=== PATIENT | female | born 1940 | race Caucasian/White ===

== ENCOUNTER 2018-01-06 15:54 | Emergency (ER) | payer MEDICARE ==
[~2018-01-06 15:54] MED LIST: CART180C PO; CHOL1CAP34 PO; DILT0.05 PO; GABA600T PO; GLIP10TA6 PO; HYDR-3583 PO; LIPI20TA PO; LISI-519 PO; METF500T PO; REGL5TAB PO; SITA1TAB2 PO; TRAD5TAB PO; ZANT150T2 PO
[2018-01-06 16:06] VITALS: BP 148/74; PULSE 120; RESP 20; TEMP 98.9; O2SAT 96
[2018-01-06] MEDS ORDERED: SODIUM CHLORIDE 0.9% FLUSH 10 ML FLUSH IV FLUSH PRN (16:45)
[2018-01-06] MEDS ORDERED: SODIUM CHLORID 0.9% 500 ML INJ 500 ML IV ONE (16:45)
--- NOTE | 2018-01-06 16:52 | PD ---
HPI Chief Complaint: Complaint Time Seen by Provider: 16:14 Travel History International Travel<30 days: No Contact w/Intl Traveler<30days: No Traveled to known affect area: No History of Present Illness HPI The patient is a 77-year-old female who presents to the emergency department for 1 day of dysuria, frequency, urgency, and hematuria. The patient complains of mild suprapubic discomfort, burning with urination, frequency, and urgency. She also complains of a large amount of blood in her urine, denies any previous history of hematuria. The patient does have chronic back pain, but denies any acute changes in her back pain. The patient denies any associated fever, chills, or sweats. She denies any nausea, vomiting, or flank pain. She denies any history of bladder cancer or nephrolithiasis. The patient denies taking any anticoagulants, has a history of allergies to aspirin. The patient's primary physician is Dr. Tio Zhao. [facility] Past Medical History Arthritis: Yes Asthma: No Autoimmune Disease: No Blood Disorders: No Anxiety: Yes Depression: Yes Heart Rhythm Problems: No Cancer: No Cardiac Catheterization: Yes Cardiovascular Problems: Yes High Cholesterol: Yes Chemotherapy: No Chest Pain: Yes Congestive Heart Failure: No COPD: Yes Cerebrovascular Accident: No Diabetes: Yes Patient Takes Glucophage: Yes Diminished Hearing: No Endocrine: Yes GERD: No Glaucoma: No Genitourinary: Yes Headaches: No Hepatitis: No Hiatal Hernia: No Hypertension: Yes Immune Disorder: No Implanted Vascular Access Dvce: Yes Kidney Stones: No Musculoskeletal: Yes Neurologic: Yes Psychiatric: Yes Reproductive: No Respiratory: Yes Migraines: No Myocardial Infarction: No Radiation Therapy: No Renal Failure: No Seizures: No Sickle Cell Disease: No Sleep Apnea: Yes Thyroid Disease: No Ulcer: No Past Surgical History Abdominal Surgery: No AICD: No Appendectomy: Yes Arteriovenous Shunt: No Body Medical Devices: MORPHINE PUMP TO LEFT HIP JOINT TO BACK Cardiac Surgery: No Cholecystectomy: No Ear Surgery: No Endocrine Surgery: No Eye Surgery: No Genitourinary Surgery: No Gynecologic Surgery: No Insulin Pump: No Joint Replacement: No Oral Surgery: No Pacemaker: No Thoracic Surgery: No Other Surgery: Yes Social History Alcohol Use: No Tobacco Use: No Substance Use: No Allergies-Medications (Allergen,Severity, Reaction): Coded Allergies: aspirin (Unverified Allergy, Severe, Swelling, 05/09/17) clindamycin (Unverified Allergy, Intermediate, RASH, 05/09/17) levofloxacin (Unverified Allergy, Intermediate, RASH, 05/09/17) Reported Meds & Prescriptions Reported Meds & Active Scripts Active Hydrocodone-Acetaminophen 10-325 mg Tab 1 Tab PO Q6H PRN Lipitor (Atorvastatin Calcium) 20 Mg Tab 20 Mg PO HS Lisinopril 5 Mg Tab 5 Mg PO DAILY Glipizide 10 Mg Tab 10 Mg PO DAILY Take 30 minutes before a meal Cartia Xt (Diltiazem ER 24 HR) 180 Mg Caper 180 Mg PO DAILY Reported Namenda (Memantine) 5 Mg Tab 5 Mg PO BID Gabapentin 600 Mg Tab 600 Mg PO BID Review of Systems Except as stated in HPI: all other systems reviewed are Neg General / Constitutional: No: Fever Cardiovascular: No: Chest Pain or Discomfort Respiratory: No: Shortness of Breath Gastrointestinal: No: Nausea, Vomiting, Abdominal Pain Genitourinary: Positive: Urgency, Frequency, Dysuria, Hematuria, Pelvic Pain ( Suprapubic discomfort), No: Flank Pain Physical Exam Narrative GENERAL: Awake, alert, pleasant 77-year-old female who appears her stated age and is in no acute respiratory distress. SKIN: Focused skin assessment warm/dry. HEAD: Atraumatic. Normocephalic. EYES: No injection or drainage. NECK: Trachea midline. No JVD. CARDIOVASCULAR: Regular, tachycardic with a heart rate of 110. RESPIRATORY: No accessory muscle use. Clear to auscultation. Breath sounds equal bilaterally. GASTROINTESTINAL: Abdomen soft, obese, no rebound tenderness. No suprapubic tenderness. MUSCULOSKELETAL: No obvious deformities. No clubbing. No cyanosis. No edema. Back: Mild tenderness of the paravertebral muscles bilaterally. NEUROLOGICAL: Awake and alert. No obvious cranial nerve deficits. Motor grossly within normal limits. Normal speech. PSYCHIATRIC: Appropriate mood and affect; insight and judgment normal. Data Data Last Documented VS Vital Signs Date Time Temp Pulse Resp B/P (MAP) Pulse Ox O2 Delivery O2 Flow Rate FiO2 01/06/18 18:05 83 20 134/60 (84) 98 Room Air 01/06/18 16:06 98.9 Orders Orders Complete Blood Count With Diff (01/06/18 16:32) Comprehensive Metabolic Panel (01/06/18 16:32) Lactic Acid (4/14/18 16:32) Urinalysis - C+S If Indicated (01/06/18 16:32) Iv Access Insert/Monitor (01/06/18 16:32) Ecg Monitoring (01/06/18 16:32) Oximetry (01/06/18 16:32) Sodium Chloride 0.9% Flush (Ns Flush) (01/06/18 16:45) Sodium Chlorid 0.9% 500 Ml Inj (Ns 500 M (01/06/18 16:45) Cath For Specimen (01/06/18 16:32) Urine Culture (01/06/18 16:55) Ceftriaxone Inj (Rocephin Inj) (01/06/18 18:15) Sodium Chlor 0.9% 1000 Ml Inj (Ns 1000 M (01/06/18 18:15) Labs Laboratory Tests Test 01/06/18 16:55 White Blood Count 17.7 TH/MM3 Red Blood Count 4.19 MIL/MM3 Hemoglobin 13.1 GM/DL Hematocrit 39.9 % Mean Corpuscular Volume 95.2 FL Mean Corpuscular Hemoglobin 31.2 PG Mean Corpuscular Hemoglobin Concent 32.8 % Red Cell Distribution Width 13.0 % Platelet Count 321 TH/MM3 Mean Platelet Volume 9.8 FL Neutrophils (%) (Auto) 76.3 % Lymphocytes (%) (Auto) 13.1 % Monocytes (%) (Auto) 9.4 % Eosinophils (%) (Auto) 0.3 % Basophils (%) (Auto) 0.9 % Neutrophils # (Auto) 13.5 TH/MM3 Lymphocytes # (Auto) 2.3 TH/MM3 Monocytes # (Auto) 1.7 TH/MM3 Eosinophils # (Auto) 0.1 TH/MM3 Basophils # (Auto) 0.2 TH/MM3 CBC Comment DIFF FINAL Differential Comment Urine Color DARK-RED Urine Turbidity CLOUDY Urine pH 7.5 Urine Specific [place] 1.020 Urine Protein 300 mg/dL Urine Glucose (UA) 150 mg/dL Urine Ketones NEG mg/dL Urine Occult Blood LARGE Urine Nitrite NEG Urine Bilirubin NEG Urine Urobilinogen LESS THAN 2.0 MG/DL Urine Leukocyte Esterase SMALL Urine RBC /hpf Urine WBC /hpf Urine Amorphous Sediment RARE Microscopic Urinalysis Comment CULTURE INDICATED Blood Urea Nitrogen 27 MG/DL Creatinine 1.40 MG/DL Random Glucose 291 MG/DL Total Protein 8.1 GM/DL Albumin 3.3 GM/DL Calcium Level 9.0 MG/DL Alkaline Phosphatase 133 U/L Aspartate Amino Transf (AST/SGOT) 17 U/L Alanine Aminotransferase (ALT/SGPT) 16 U/L Total Bilirubin 0.3 MG/DL Sodium Level 138 MEQ/L Potassium Level 4.8 MEQ/L Chloride Level 109 MEQ/L Carbon Dioxide Level 18.4 MEQ/L Anion Gap 11 MEQ/L Estimat Glomerular Filtration Rate 36 ML/MIN Lactic Acid Level 2.1 mmol/L MDM Medical Decision Making Medical Screen Exam Complete: Yes Emergency Medical Condition: Yes Medical Record Reviewed: Yes Interpretation(s) Laboratory Tests Test 01/06/18 16:55 White Blood Count 17.7 TH/MM3 Red Blood Count 4.19 MIL/MM3 Hemoglobin 13.1 GM/DL Hematocrit 39.9 % Mean Corpuscular Volume 95.2 FL Mean Corpuscular Hemoglobin 31.2 PG Mean Corpuscular Hemoglobin Concent 32.8 % Red Cell Distribution Width 13.0 % Platelet Count 321 TH/MM3 Mean Platelet Volume 9.8 FL Neutrophils (%) (Auto) 76.3 % Lymphocytes (%) (Auto) 13.1 % Monocytes (%) (Auto) 9.4 % Eosinophils (%) (Auto) 0.3 % Basophils (%) (Auto) 0.9 % Neutrophils # (Auto) 13.5 TH/MM3 Lymphocytes # (Auto) 2.3 TH/MM3 Monocytes # (Auto) 1.7 TH/MM3 Eosinophils # (Auto) 0.1 TH/MM3 Basophils # (Auto) 0.2 TH/MM3 CBC Comment DIFF FINAL Differential Comment Urine Color DARK-RED Urine Turbidity CLOUDY Urine pH 7.5 Urine Specific [place] 1.020 Urine Protein 300 mg/dL Urine Glucose (UA) 150 mg/dL Urine Ketones NEG mg/dL Urine Occult Blood LARGE Urine Nitrite NEG Urine Bilirubin NEG Urine Urobilinogen LESS THAN 2.0 MG/DL Urine Leukocyte Esterase SMALL Urine RBC /hpf Urine WBC /hpf Urine Amorphous Sediment RARE Microscopic Urinalysis Comment CULTURE INDICATED Blood Urea Nitrogen 27 MG/DL Creatinine 1.40 MG/DL Random Glucose 291 MG/DL Total Protein 8.1 GM/DL Albumin 3.3 GM/DL Calcium Level 9.0 MG/DL Alkaline Phosphatase 133 U/L Aspartate Amino Transf (AST/SGOT) 17 U/L Alanine Aminotransferase (ALT/SGPT) 16 U/L Total Bilirubin 0.3 MG/DL Sodium Level 138 MEQ/L Potassium Level 4.8 MEQ/L Chloride Level 109 MEQ/L Carbon Dioxide Level 18.4 MEQ/L Anion Gap 11 MEQ/L Estimat Glomerular Filtration Rate 36 ML/MIN Lactic Acid Level 2.1 mmol/L Differential Diagnosis Differential diagnosis includes UTI, hemorrhagic cystitis, nephrolithiasis, hydronephrosis, bladder cancer, hyperbilirubinemia, acute kidney injury, coagulopathy, rhabdomyolysis. Narrative Course IV was established, labs are drawn and sent, the patient was placed on cardiac telemetry monitoring and continuous pulse oximetry monitoring. UA was sent to lab. Patient's white count was elevated at 17.1, patient was afebrile. Lactic acid is mildly elevated at 2.1. UA reveals innumerable RBCs and WBCs consistent with hemorrhagic cystitis. The patient was administered Rocephin 1 g intravenously, urine culture was pending. Patient was also administered 1 L of IV fluids after the initial 500 cc bolus. I did discussion with the patient regarding inpatient versus outpatient treatment. After discussion was agreed we would try outpatient treatment with sulfa twice a day and Pyridium. She is advised that if symptoms worsen or progress to return for admission. I did advise her that if she is unable to tolerate the medications as directed, has nausea/vomiting, fever, or progressing symptoms to return immediately. Patient and family members agree and understand. Diagnosis Primary Impression: Hemorrhagic cystitis Patient Instructions: General Instructions Additional Instructions: Medications as directed. Return for progressing symptoms, fever, intractable nausea/vomiting, or inability to tolerate oral meds. Please provide the family a copy of labs at discharge. Med/Other Pt SpecificInfo: Prescription(s) given Scripts Phenazopyridine (Pyridium) 100 Mg Tab 200 MG PO Q8H Y for DYSURIA for 2 Days, #12 TAB 0 Refills Prov: Tanvir Gonzalez MD 01/06/18 Sulfamethoxazole-Trimethoprim (Bactrim DS) 800-160 Mg Tab 1 TAB PO BID for Infection, #20 TAB 0 Refills Prov: Tanvir Gonzalez MD 01/06/18 Disposition: 01 DISCHARGE HOME Condition: Stable Tnavir Gonzalez MD Jan 06, 2018 16:52
[2018-01-06 17:11] LABS: AUTOMATED NEUTROPHIL # 13.5 TH/MM3 (1.8-7.7); BASOPHIL # 0.2 TH/MM3 (0-0.2); BASOPHIL % 0.9 % (0.0-2.0); EOSINOPHIL # 0.1 TH/MM3 (0-0.4); EOSINOPHIL % 0.3 % (0.0-4.0); HEMATOCRIT 39.9 % (35.0-46.0); HEMOGLOBIN 13.1 GM/DL (11.6-15.3); LYMPH % 13.1 % (9.0-44.0); LYMPHOCYTE # 2.3 TH/MM3 (1.0-4.8); MEAN CELL VOLUME 95.2 FL (80.0-100.0); MEAN CORPUSCULAR HEMOGLOBIN 31.2 PG (27.0-34.0); MEAN CORPUSCULAR HGB CONC 32.8 % (32.0-36.0); MEAN PLATELET VOLUME 9.8 FL (7.0-11.0); MONO % 9.4 % (0.0-8.0); MONOCYTE # 1.7 TH/MM3 (0-0.9); NEUT % 76.3 % (16.0-70.0); PLATELET COUNT 321 TH/MM3 (150-450); RED BLOOD COUNT 4.19 MIL/MM3 (4.00-5.30); WHITE BLOOD COUNT 17.7 TH/MM3 (4.0-11.0)
[2018-01-06 17:36] LABS: ALBUMIN 3.3 GM/DL (3.4-5.0); AMORPHOUS SEDIMENT, URINE RARE; AST (GOT) 17 U/L (15-37); BICARBONATE 18.4 MEQ/L (21.0-32.0); BILIRUBIN, URINE NEG (NEG); BLOOD UREA NITROGEN 27 MG/DL (7-18); BLOOD, URINE LARGE (NEG); CHLORIDE 109 MEQ/L (98-107); GLOMERULAR FILTRATION RATE 36 ML/MIN (>89); GLUCOSE,RANDOM 291 MG/DL (74-106); GLUCOSE,URINE 150 mg/dL (NEG); KETONE, URINE NEG (NEG); NITRITE,URINE NEG (NEG); PH, URINE 7.5 (5.0-8.5); SODIUM (NA) 138 MEQ/L (136-145); URINE LEUKOCYTE ESTERASE SMALL (NEG)
[2018-01-06 17:37] LABS: ALT (GPT) 16 U/L (10-53); URINE COLOR DARK-RED (YELLW/STRAW)
[2018-01-06 17:39] LABS: ALKALINE PHOSPHATASE 133 U/L (45-117); TOTAL BILIRUBIN ADULT 0.3 MG/DL (0.2-1.0); TOTAL PROTEIN 8.1 GM/DL (6.4-8.2)
[2018-01-06] MEDS ORDERED: NAME5TAB2 PO (17:58)
[2018-01-06 18:05] VITALS: BP 134/60; PULSE 83; RESP 20; O2SAT 98
[2018-01-06] MEDS ORDERED: PHEN0.4T PO (18:15)
[2018-01-06] MEDS ORDERED: cefTRIAXone INJ 1,000 MG in SODIUM CHLORIDE 0.9% INJ 100 ML IV ONE (18:15)
[2018-01-06] MEDS ORDERED: BACT800T5 PO (18:15)
[2018-01-06] MEDS ORDERED: SODIUM CHLOR 0.9% 1000 ML INJ 1,000 ML IV ONE (18:15)
[2018-01-06 20:22] VITALS: BP 135/66; TEMP 98
== END 2018-01-06 20:24 | disposition home or self-care (01) ==
LOC: NEPC 15:54
DX: N30.91 Cystitis, unspecified with hematuria (principal); E11.9 Type 2 diabetes mellitus without complications; E78.00 Pure hypercholesterolemia, unspecified; I10 Essential (primary) hypertension; Z79.84 Long term (current) use of oral hypoglycemic drugs
CPT/HCPCS: 80053; 81001; 83605; 85025; 87086; 96361; 96365; 99284; J0696; J7030; J7040; P9612

== ENCOUNTER 2018-01-25 14:40 | Emergency (ER) | payer MEDICARE ==
[~2018-01-25 14:40] MED LIST changes: +BACT800T5 PO; -CHOL1CAP34 PO; -DILT0.05 PO; -METF500T PO; +NAME5TAB2 PO; +PHEN0.4T PO; -REGL5TAB PO; -SITA1TAB2 PO; -TRAD5TAB PO; -ZANT150T2 PO
[2018-01-25 14:44] VITALS: BP 114/57; PULSE 83; RESP 16; TEMP 98.5; O2SAT 97
[2018-01-25] MEDS ORDERED: METF500T PO (15:26)
[2018-01-25] MEDS ORDERED: GLIP10TA6 PO (15:26)
[2018-01-25] MEDS ORDERED: METO5TAB PO (15:26)
[2018-01-25] MEDS ORDERED: RANI150T PO (15:26)
[2018-01-25] MEDS ORDERED: SELE200T17 PO (15:26)
[2018-01-25] MEDS ORDERED: TRAD5TAB PO (15:26)
[2018-01-25] MEDS ORDERED: DILT0.05 PO (15:26)
[2018-01-25] MEDS ORDERED: VITA1000 PO (15:26)
[2018-01-25] MEDS ORDERED: VITA50TA30 PO (15:26)
[2018-01-25] MEDS ORDERED: ZINC50TA2 PO (15:26)
--- NOTE | 2018-01-25 15:26 | PD ---
HPI Chief Complaint: Medical Clearance Time Seen by Provider: 15:01 Travel History International Travel<30 days: No Contact w/Intl Traveler<30days: No Traveled to known affect area: No History of Present Illness HPI 77yo F with PMH of DM, dementia presents to the ED with her daughter because she is not drinking and vomited after medications today. Pt was seen in the ED on 01/06/18 for urinary complaints and found to have leukocytosis and UTI so she was given option of outpatient treatment versus inpatient treatment. Pt chose outpatient and completed 10 days of bactrim. Pt went to her primary care physician a few days ago and they did blood work and said her white blood cell count was high so restarted her on bactrim. Pt's daughter said pt refuses to drink and vomited today. However, she ate food today. Pt is pleasantly demented and denies any complaints. PFSH Past Medical History Arthritis: Yes Asthma: No Autoimmune Disease: No Blood Disorders: No Anxiety: Yes Depression: Yes Heart Rhythm Problems: No Cancer: No Cardiac Catheterization: Yes Cardiovascular Problems: Yes High Cholesterol: Yes Chemotherapy: No Chest Pain: Yes Congestive Heart Failure: No COPD: Yes Cerebrovascular Accident: No Diabetes: Yes Diminished Hearing: No Endocrine: Yes GERD: No Glaucoma: No Genitourinary: Yes Headaches: No Hepatitis: No Hiatal Hernia: No Hypertension: Yes Immune Disorder: No Implanted Vascular Access Dvce: Yes Kidney Stones: No Musculoskeletal: Yes Neurologic: Yes Psychiatric: Yes Reproductive: No Respiratory: Yes Migraines: No Myocardial Infarction: No Radiation Therapy: No Renal Failure: No Seizures: No Sickle Cell Disease: No Sleep Apnea: Yes Thyroid Disease: No Ulcer: No Past Surgical History Abdominal Surgery: No AICD: No Appendectomy: Yes Arteriovenous Shunt: No Body Medical Devices: MORPHINE PUMP TO LEFT HIP JOINT TO BACK Cardiac Surgery: No Cholecystectomy: No Ear Surgery: No Endocrine Surgery: No Eye Surgery: No Genitourinary Surgery: No Gynecologic Surgery: No Insulin Pump: No Joint Replacement: No Oral Surgery: No Pacemaker: No Thoracic Surgery: No Other Surgery: Yes Social History Alcohol Use: No Tobacco Use: No Substance Use: No Allergies-Medications (Allergen,Severity, Reaction): Coded Allergies: aspirin (Unverified Allergy, Severe, Swelling, 01/25/18) clindamycin (Unverified Allergy, Intermediate, RASH, 01/25/18) levofloxacin (Unverified Allergy, Intermediate, RASH, 01/25/18) Reported Meds & Prescriptions Reported Meds & Active Scripts Active Hydrocodone-Acetaminophen 10-325 mg Tab 1 Tab PO Q6H PRN Lipitor (Atorvastatin Calcium) 20 Mg Tab 20 Mg PO HS Lisinopril 5 Mg Tab 5 Mg PO DAILY Reported Metformin (Metformin HCl) 500 Mg Tab 500 Mg PO BIDPC Tradjenta (Linagliptin) 5 Mg Tab 5 Mg PO DAILY Vitamin B-6 (Pyridoxine HCl) 50 Mg Tab 50 Mg PO DAILY Zinc Gluconate 50 Mg Tab 50 Mg PO DAILY Selenium 200 Mcg Tab 200 Mg PO DAILY Vitamin D-1000 (Cholecalciferol) 1,000 Unit Tab 1,000 Units PO DAILY Glipizide 10 Mg Tab 10 Mg PO BIDAC Take 30 minutes before a meal Ranitidine (Ranitidine HCl) 150 Mg Tab 150 Mg PO DAILY Metoclopramide (Metoclopramide HCl) 5 Mg Tab 5 Mg PO TIDAC Diltiazem ER 24 HR 180 Mg Bibi 180 Mg PO DAILY Namenda (Memantine) 5 Mg Tab 5 Mg PO BID Gabapentin 600 Mg Tab 600 Mg PO BID Review of Systems Except as stated in HPI: all other systems reviewed are Neg Physical Exam Narrative GENERAL: 77yo F not in distress. SKIN: Focused skin assessment warm/dry. HEAD: Atraumatic. Normocephalic. EYES: Pupils equal and round. No scleral icterus. No injection or drainage. ENT: No nasal bleeding or discharge. Mucous membranes pink and moist. NECK: Trachea midline. No JVD. CARDIOVASCULAR: Regular rate and rhythm. No murmur appreciated. RESPIRATORY: No accessory muscle use. Clear to auscultation. Breath sounds equal bilaterally. GASTROINTESTINAL: Abdomen soft, non-tender, nondistended. No rebound tenderness or guarding. MUSCULOSKELETAL: No obvious deformities. No clubbing. No cyanosis. No edema. NEUROLOGICAL: AAOx1. No obvious cranial nerve deficits. Motor grossly within normal limits in all extremities. Sensation intact. Normal speech. Data Data Last Documented VS Vital Signs Date Time Temp Pulse Resp B/P (MAP) Pulse Ox O2 Delivery O2 Flow Rate FiO2 01/25/18 17:45 94 01/25/18 14:44 98.5 16 114/57 (76) 97 Orders Orders Complete Blood Count With Diff (01/25/18 15:21) Basic Metabolic Panel (Bmp) (01/25/18 15:21) Lactic Acid Sepsis Protocol (01/25/18 15:21) Blood Culture (01/25/18 15:21) Urinalysis - C+S If Indicated (01/25/18 15:21) Electrocardiogram (01/25/18 ) Albuterol Concentrated Neb (Albuterol Co (01/25/18 16:45) Ed Discharge Order (01/25/18 17:22) Labs Laboratory Tests Test 01/25/18 15:40 White Blood Count 9.0 TH/MM3 Red Blood Count 3.80 MIL/MM3 Hemoglobin 12.2 GM/DL Hematocrit 36.8 % Mean Corpuscular Volume 96.9 FL Mean Corpuscular Hemoglobin 32.1 PG Mean Corpuscular Hemoglobin Concent 33.1 % Red Cell Distribution Width 12.9 % Platelet Count 293 TH/MM3 Mean Platelet Volume 9.2 FL Neutrophils (%) (Auto) 53.4 % Lymphocytes (%) (Auto) 27.5 % Monocytes (%) (Auto) 7.8 % Eosinophils (%) (Auto) 9.7 % Basophils (%) (Auto) 1.6 % Neutrophils # (Auto) 4.8 TH/MM3 Lymphocytes # (Auto) 2.5 TH/MM3 Monocytes # (Auto) 0.7 TH/MM3 Eosinophils # (Auto) 0.9 TH/MM3 Basophils # (Auto) 0.1 TH/MM3 CBC Comment DIFF FINAL Differential Comment Urine Color YELLOW Urine Turbidity CLEAR Urine pH 6.5 Urine Specific [place] 1.014 Urine Protein NEG mg/dL Urine Glucose (UA) NEG mg/dL Urine Ketones NEG mg/dL Urine Occult Blood NEG Urine Nitrite NEG Urine Bilirubin NEG Urine Urobilinogen LESS THAN 2.0 MG/DL Urine Leukocyte Esterase NEG Urine RBC LESS THAN 1 /hpf Urine WBC LESS THAN 1 /hpf Urine Squamous Epithelial Cells 1 /hpf Microscopic Urinalysis Comment CATH-CULT NOT IND Blood Urea Nitrogen 22 MG/DL Creatinine 1.49 MG/DL Random Glucose 170 MG/DL Calcium Level 9.1 MG/DL Sodium Level 139 MEQ/L Potassium Level 5.5 MEQ/L Chloride Level 105 MEQ/L Carbon Dioxide Level 26.8 MEQ/L Anion Gap 7 MEQ/L Estimat Glomerular Filtration Rate 34 ML/MIN Lactic Acid Level 1.9 mmol/L MDM Medical Decision Making Medical Screen Exam Complete: Yes Emergency Medical Condition: Yes Interpretation(s) EKG: NSR 69bpm. Normal axis. No peaked T wave. No ST segment elevation or depression. Differential Diagnosis UTI vs. dehydration vs. electrolyte abnormality Narrative Course 77yo F was brought in by daughter because she said she is refusing to drink and she is worried about dehydration. Pt is very well appearing. Labs reviewed, no leukocytosis. H/H normal. BUN/creatinine 22/1.49 which is unchanged from prior. Potassium mildly elevated at 5.5. Will give albuterol neb and do EKG. Lactic acid normal at 1.9. Glucose 170. UA showed WBC less than 1. Culture not indicated. Pt has not vomited here and has no abdominal pain on exam. Pt tolerating PO here, drinking water. No vomiting here. Return precautions given. Diagnosis Primary Impression: Routine medical exam Patient Instructions: General Instructions Departure Forms: Tests/Procedures Additional Instructions: Please return to the ED if symptoms worsen. Please follow up with your primary care physician. Med/Other Pt SpecificInfo: No Change to Meds Disposition: 01 DISCHARGE HOME Condition: Stable Rayna Serrano DO January 25, 2018 15:26
[2018-01-25 15:59] LABS: BILIRUBIN, URINE NEG (NEG); BLOOD, URINE NEG (NEG); GLUCOSE,URINE NEG (NEG); KETONE, URINE NEG (NEG); NITRITE,URINE NEG (NEG); PH, URINE 6.5 (5.0-8.5); SQUAMOUS EPITHELIAL CELL URINE 1 /hpf (0-5); URINE COLOR YELLOW (YELLW/STRAW); URINE LEUKOCYTE ESTERASE NEG (NEG)
[2018-01-25 16:07] LABS: AUTOMATED NEUTROPHIL # 4.8 TH/MM3 (1.8-7.7); BASOPHIL # 0.1 TH/MM3 (0-0.2); BASOPHIL % 1.6 % (0.0-2.0); EOSINOPHIL # 0.9 TH/MM3 (0-0.4); EOSINOPHIL % 9.7 % (0.0-4.0); HEMATOCRIT 36.8 % (35.0-46.0); HEMOGLOBIN 12.2 GM/DL (11.6-15.3); LYMPH % 27.5 % (9.0-44.0); LYMPHOCYTE # 2.5 TH/MM3 (1.0-4.8); MEAN CELL VOLUME 96.9 FL (80.0-100.0); MEAN CORPUSCULAR HEMOGLOBIN 32.1 PG (27.0-34.0); MEAN CORPUSCULAR HGB CONC 33.1 % (32.0-36.0); MEAN PLATELET VOLUME 9.2 FL (7.0-11.0); MONO % 7.8 % (0.0-8.0); MONOCYTE # 0.7 TH/MM3 (0-0.9); NEUT % 53.4 % (16.0-70.0); PLATELET COUNT 293 TH/MM3 (150-450); RED CELL DISTRIBUTION WIDTH 12.9 % (11.6-17.2)
[2018-01-25 16:21] LABS: BICARBONATE 26.8 MEQ/L (21.0-32.0); CALCIUM 9.1 MG/DL (8.5-10.1); CREATININE 1.49 MG/DL (0.50-1.00)
[2018-01-25] MEDS ORDERED: RESP: ALBUTEROL CONC 2.5 MG/0.5 ML NEB INH ONE (16:45)
--- NOTE | 2018-01-26 21:21 | EKG ---
Date Performed: 01/25/2018 Time Performed: 17:18:00 PTAGE: 77 years EKG: Sinus rhythm NORMAL ECG Since the PREVIOUS TRACING , no significant change noted PREVIOUS TRACIN08/13/2013 18.40 DOCTOR: Jack Heller Interpretating Date/Time 01/26/2018 16:55:00
== END 2018-01-25 18:18 | disposition home or self-care (01) ==
LOC: NEPD 14:40
DX: Z00.00 Encounter for general adult medical examination without abnormal findings (principal); F03.90 Unspecified dementia, unspecified severity, without behavioral disturbance, psychotic disturbance, mood disturbance, and anxiety; E78.00 Pure hypercholesterolemia, unspecified; E11.9 Type 2 diabetes mellitus without complications; I10 Essential (primary) hypertension; J44.9 Chronic obstructive pulmonary disease, unspecified; Z79.84 Long term (current) use of oral hypoglycemic drugs
CPT/HCPCS: 80048; 81001; 83605; 85025; 87040; 93005; 94664; 99284; J7611